=== PATIENT | male | born 1945 | race Caucasian/White ===

== ENCOUNTER 2017-11-23 10:17 | Day surgery (SDC) | payer MEDICARE, OTHER ==
[~2017-11-23] VITALS: Ht 170 cm; Wt 70.4 kg
[~2017-11-23 10:17] MED LIST: ACET-2853 PO; ALBU4TAB6 PO; AMLO5TAB88 PO; BISA10SU8 RC; CALC667C PO; CARV6.2548 PO; CLOP75TA33 PO; FOLI0.8T23 PO; HYDR-4001 PO; LEVO75TA7 PO; PANT40TA4 PO
[2017-11-23] MEDS ORDERED: SODIUM CHLORIDE 0.9% 500 ML IV ONE (11:30)
[2017-11-23 11:37] LABS: BASOPHILS % 0.8 % (0.0-2.0); EOSINOPHILS % 4.3 % (0.0-5.0); HEMATOCRIT. 33.8 % (42.0-52.0); HEMOGLOBIN. 11.7 g/dL (14.0-18.0); LYMPHOCYTES % 26.9 % (20.0-50.0); MEAN CORPUSCULAR HEMOGLOBIN 33.9 pg (28.0-32.0); MEAN CORPUSCULAR VOLUME 98.1 fL (80.0-94.0); MEAN PLATELET VOLUME 7.6 fl (7.4-10.4); MONOCYTES % 9.6 % (2.0-8.0); NEUTROPHILS % 58.4 % (40.0-76.0); PLATELET 261 x1000/uL (130-400); RED BLOOD CELL COUNT 3.45 mill/uL (4.7-6.1); RED CELL DISTRIBUTION WIDTH 14.7 % (11.6-14.6)
[2017-11-23] MEDS ORDERED: BACITRACIN ZINC 15GM TUBE TOP ONE (11:40)
[2017-11-23] MEDS ORDERED: THROMBIN (BOVINE) 5000 UNITS/VIAL TOP ONE (11:40)
[2017-11-23] MEDS ORDERED: HEPARIN SODIUM 1,000 UNIT/1ML VIAL IV ONE (11:41)
[2017-11-23] MEDS ORDERED: BUPIVACAINE HCL/PF 0.5% (5MG/ML) 10ML ONE (11:41)
[2017-11-23] MEDS ORDERED: LIDOCAINE HCL 1% 10 MG/ML 10ML VIAL ONE (11:41)
[2017-11-23] MEDS ORDERED: BACITRACIN 50,000 UNITS/VIAL ONE (11:42)
[2017-11-23] MEDS ORDERED: GELATIN SPONGE,COMPRESSED SZ 100 ONE (11:42)
[2017-11-23 11:50] LABS: PARTIAL THROMBOPLASTIN TIME 25.3 sec (23.4-31.0)
[2017-11-23] MEDS ORDERED: MIDAZOLAM HCL 2 MG/2 ML VIAL ONE (12:49)
[2017-11-23] MEDS ORDERED: PROPOFOL 200MG/20ML VIAL IV ONE (12:49)
[2017-11-23] MEDS ORDERED: FENTANYL CITRATE/PF 50MCG/ML 2ML VIAL ONE (12:49)
[2017-11-23] MEDS ORDERED: CEFAZOLIN SODIUM 1000MG/VIAL ONE ×2 (12:50→13:18)
[2017-11-23] MEDS ORDERED: PROPOFOL 10MG/ML 100ML 100 ML IV ONE (13:09)
[2017-11-23] MEDS ORDERED: PHENYLEPHRINE HCL 10 MG/ML 1ML (IV VIAL) IV ONE (13:28)
[2017-11-23] MEDS ORDERED: HEPARIN 1000 UNITS/ML 10ML ONE (13:53)
[2017-11-23] MEDS ORDERED: ONDANSETRON HCL 4MG/2ML INJ IV PRN (14:00)
[2017-11-23] MEDS ORDERED: MEPERIDINE HCL/PF 25MG/ML CPJ IV PRN (14:00)
[2017-11-23] MEDS ORDERED: HYDROMORPHONE HCL/PF 2MG/ML CPJ IV PRN (14:00)
[2017-11-23] MEDS ORDERED: FENTANYL CITRATE/PF 50MCG/ML 2ML VIAL IV PRN (14:00)
[2017-11-23] MEDS ORDERED: MORPHINE SULFATE 4 MG/ML CPJ (NOT FOR IM USE) IV PRN (14:00)
== END 2017-11-23 15:30 | disposition home or self-care (01) ==
LOC: OR 10:17
PROVIDERS: ATTEND Surgery Vascular Surgery
DX: N18.6 End stage renal disease (principal); I13.11 Hypertensive heart and chronic kidney disease without heart failure, with stage 5 chronic kidney disease, or end stage renal disease; E11.22 Type 2 diabetes mellitus with diabetic chronic kidney disease; I73.9 Peripheral vascular disease, unspecified; E03.9 Hypothyroidism, unspecified; Z98.890 Other specified postprocedural states; Z99.2 Dependence on renal dialysis; Z79.899 Other long term (current) drug therapy
CPT/HCPCS: 36415; 36821; 71045; 80048; 82962; 85025; 85610; 85730; 93005; J0690; J1644; J2250; J2370; J2704; J3010; J3490; J7040

== ENCOUNTER 2017-12-28 11:25 | Day surgery (SDC) | payer MEDICARE ==
[~2017-12-28] VITALS: Ht 168.9 cm; Wt 70.3 kg
[~2017-12-28 11:25] MED LIST changes: -HYDR-4001 PO
[2017-12-28] MEDS ORDERED: GELATIN SPONGE,ABSORBABLE 12-7MM SPONGE ONE (12:31)
[2017-12-28] MEDS ORDERED: BACITRACIN 15GM TUBE TOP ONE (12:31)
[2017-12-28] MEDS ORDERED: BUPIVACAINE HCL/PF 0.5% (5MG/ML) 10ML ONE (12:32)
[2017-12-28] MEDS ORDERED: NORMAL SALINE 0.9% 10 ML SYR ONE (12:32)
[2017-12-28] MEDS ORDERED: HEPARIN SODIUM 1,000 UNIT/1ML VIAL IV ONE (12:32)
[2017-12-28] MEDS ORDERED: LIDOCAINE HCL/PF 1% 10 MG/ML 5ML VIAL ONE (12:33)
[2017-12-28] MEDS ORDERED: THROMBIN (BOVINE) 5000 UNITS/VIAL TOP ONE (12:34)
[2017-12-28 12:49] LABS: EOSINOPHILS % 3.7 % (0.0-5.0); HEMATOCRIT. 29.9 % (42.0-52.0); HEMOGLOBIN. 10.2 g/dL (14.0-18.0); LYMPHOCYTES % 26.4 % (20.0-50.0); MEAN CORPUSCULAR HEMOGLOBIN 33.3 pg (28.0-32.0); MEAN CORPUSCULAR VOLUME 97.1 fL (80.0-94.0); MEAN PLATELET VOLUME 7.1 fl (7.4-10.4); MONOCYTES % 9.4 % (2.0-8.0); NEUTROPHILS % 59.5 % (40.0-76.0); PLATELET 274 x1000/uL (130-400); RED BLOOD CELL COUNT 3.07 mill/uL (4.7-6.1); RED CELL DISTRIBUTION WIDTH 13.7 % (11.6-14.6)
[2017-12-28 12:57] LABS: PARTIAL THROMBOPLASTIN TIME 25.4 sec (23.4-31.0); PROTHROMBIN TIME 9.8 sec (9.1-11.1)
[2017-12-28] MEDS ORDERED: HYDR100T26 PO (12:58)
[2017-12-28] MEDS ORDERED: HYDR-4067 PO (12:58)
[2017-12-28] MEDS ORDERED: CLON0.1T PO (12:58)
[2017-12-28] MEDS ORDERED: LIDOCAINE HCL/PF 2% 20MG/ML 5 ML/VIAL ONE (13:23)
[2017-12-28] MEDS ORDERED: FENTANYL CITRATE/PF 50MCG/ML 2ML VIAL ONE (13:36)
[2017-12-28] MEDS ORDERED: PROPOFOL 10MG/ML 100ML 100 ML IV ONE (13:37)
[2017-12-28] MEDS ORDERED: MIDAZOLAM HCL 2 MG/2 ML VIAL ONE (13:38)
[2017-12-28] MEDS ORDERED: CEFAZOLIN SODIUM 1000MG/VIAL ONE (14:11)
[2017-12-28] MEDS ORDERED: SUCCINYLCHOLINE CHLORIDE 200MG/10ML IV ONE (14:12)
[2017-12-28] MEDS ORDERED: BACITRACIN 50,000 UNITS/VIAL ONE (14:17)
[2017-12-28] MEDS ORDERED: IOPAMIDOL 61% 300/15 ML VIAL IT ONE (14:50)
[2017-12-28] MEDS ORDERED: IOHEXOL-300 100 ML BOTTLE ONE ×2 (14:51→16:13)
[2017-12-28] MEDS ORDERED: FENTANYL CITRATE/PF 50MCG/ML 2ML VIAL IV PRN (15:15)
[2017-12-28] MEDS ORDERED: MEPERIDINE HCL/PF 25MG/ML CPJ IV PRN (15:15)
[2017-12-28] MEDS ORDERED: ONDANSETRON HCL 4MG/2ML INJ IV PRN (15:15)
[2017-12-28] MEDS ORDERED: MORPHINE SULFATE 4 MG/ML CPJ (NOT FOR IM USE) IV PRN (15:15)
[2017-12-28] MEDS ORDERED: HYDROMORPHONE HCL/PF 2MG/ML CPJ IV PRN (15:15)
[2017-12-28 17:21] VITALS: BP 136/50
== END 2017-12-28 18:10 | disposition home or self-care (01) ==
LOC: OR 11:25
PROVIDERS: ATTEND Surgery Vascular Surgery
DX: I70.8 Atherosclerosis of other arteries (principal); T82.898A Other specified complication of vascular prosthetic devices, implants and grafts, initial encounter; Y83.8 Other surgical procedures as the cause of abnormal reaction of the patient, or of later complication, without mention of misadventure at the time of the procedure; E03.9 Hypothyroidism, unspecified; I12.0 Hypertensive chronic kidney disease with stage 5 chronic kidney disease or end stage renal disease; E11.22 Type 2 diabetes mellitus with diabetic chronic kidney disease; N18.6 End stage renal disease; Z99.2 Dependence on renal dialysis; Z79.899 Other long term (current) drug therapy; Z98.890 Other specified postprocedural states
CPT/HCPCS: 36415; 36832; 37236; 80048; 85025; 85610; 85730; 93005; C1768; J0330; J0690; J1644; J2250; J2704; J3010; J3490; Q9967; A4216; J7040